=== PATIENT | male | born 1935 | race Caucasian/White ===

== ENCOUNTER → 2023-04-01 14:23 | Outpatient (REF) | payer MEDICARE, SELFPAY ==
--- NOTE | 2023-04-01 14:30 | CA_ITS ---
Transthoracic Echocardiogram Patient (Last, First, Middle): Jerry Rosario, Gender: Male Date of : 1935 Age: 88 Procedure Date: 04/01/2023 Procedure Type: Transthoracic Echocardiogram Location: OP Height: 190.5 cm Weight: 116.58 kg BSA: 2.44 m2 Heart Rate: bpm BP: 136 / 70 mmHg [employer] Ch[employer]ur: TO Referring MD: Palma Velasquez MD Symptoms: I10 HTN, NEW ONSET AFIB I48.91 Study Quality: Fair/Contrast ECG Rhythm: Atrial Fibrillation Conclusions: - The left ventricular systolic function is low normal. The visually estimated ejection fraction is between 50-55%. - There is mild aortic valve stenosis. 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 Findings Procedure Information Contrast agent, definity, is being given per protocol without apparent complications. Left Ventricle Normal left ventricular cavity size. The left ventricular systolic function is low normal. The visually estimated ejection fraction is between 50-55%. There is no evidence of regional wall motion abnormalities. Diastolic function is indeterminate on the basis of available data. There is mild septal asymmetric hypertrophy. Right Ventricle Mildly increased right ventricular cavity size. There is normal right ventricular systolic function. Atria The left atrium is severely dilated. The right atrium is moderately dilated. Aortic Valve There is moderate calcification of the aortic valve. There is mild aortic valve stenosis. There is no aortic valve regurgitation. Mitral Valve The mitral valve appears normal. There is mild mitral valve regurgitation. There is no mitral valve stenosis. Pulmonic Valve The pulmonic valve is likely normal. Tricuspid Valve There is mild tricuspid valve regurgitation. There is no evidence of pulmonary hypertension. 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 Venous The inferior vena cava is dilated and collapses greater than 50% with inspiration. Pericardium/Pleural There is no evidence of pericardial effusion. Prior Study Comparison No prior study available for comparison. Measurements 2D Linear Measurements IVSd: 1.38 0.6-0.9/0.6-1.0 cm LVIDd: 5.75 3.9-5.3/4.2-5.9 cm LVIDd Index: 2.36 2.4-3.2/2.2-3.1 cm/m2 LVIDs: 4.42 2.0-3.6 cm LVPWd: 1.00 0.7-1.1 cm LA Diam: 5.30 2.7-3.8/3.0-4.0 cm LAIDs Index: 2.17 1.5-2.3 cm/m2 LV Mass: 360.74 67-162/88-224 g LV Mass Index: 147.84 43-95/49-115 g/m2 LVOT Diam: 2.40 3.0+(-)1.3 cm Mitral Valve MV Pk E: 1.05 MV Decel Time: 262.00 E'Lateral: 9.50 E'Medial: 9.03 E/E' Med: 11.60 E/E' Lat: 11.10 PHT: 77.00 MVA PHT: 2.86 Decel Luce: 4.05 Aortic Valve AoV Pk Myles: 2.11 AoV Mn Myles: 1.54 AoV VTI: 0.50 AoV Pk Grad: 18.00 Aov Mn Grad: 11.00 ALIX Cont.VTI: 1.58 LVOT LVOT Pk Myles: 0.71 LVOT Mn Myles: 0.51 LVOT VTI: 0.17 LVOT Pk Grad: 2.00 LVOT Mn Grad: 1.00 LVOT Diam: 2.40 LVOT Area: 4.52 Diastolic Function MV Pk E: 1.05 E'Medial: 9.03 E/E' Med: 11.60 E' Laterial: 9.50 E/E' Lat: 11.10 Right Ventricle TAPSE (mm): 20.30 TVS' Myles: 13.30 Tricuspid Valve TR Pk Myles: 2.77 TR Pk Grad: 31.00 RA Press: 8.00 RVSP: 39.00 Great Vessels Aorta Sinus of Valsalva: 3.45 2.0-3.[address] Ridge: 2.62 1.7-3.4 cm Ao Asc: 4.10 2.1-3.4 cm Updated in Other Vendor System with Status of Final Bola Lama MD electronically signed on 04/02/2023 12:39:49 PM with status of Final
== END ==
LOC: HO.CARD 14:23
PROVIDERS: PCP Internal Medicine; Visit Provider Internal Medicine
DX: I10 Essential (primary) hypertension (principal); I48.91 Unspecified atrial fibrillation
CPT/HCPCS: 93306; Q9957

== ENCOUNTER → 2023-04-01 14:30 | Outpatient (BNV) | payer MEDICARE, SELFPAY | PROVIDERS: PCP Internal Medicine; Visit Provider Internal Medicine | DX: I35.0 Nonrheumatic aortic (valve) stenosis (principal); I35.8 Other nonrheumatic aortic valve disorders | CPT/HCPCS: 93306 ==